=== PATIENT | female | born 1970 | race Caucasian/White ===

== ENCOUNTER 2023-03-02 10:41 | Emergency (ER) | payer SELFPAY ==
[~2023-03-02] VITALS: Ht 165 cm; Wt 82.0 kg
--- NOTE | 2023-03-02 10:56 | ED Chest Pain ---
General Chief Complaint: Chest Pain Stated Complaint: CHEST/BACK PAIN History of Present Illness Date Seen by Provider: Mar 02, 2023 Time Seen by Provider: 10:45 Initial Comments 52-year-old female with PMH of PTSD and left shoulder cuff injury and bilateral carpal tunnel syndrome repair, is here with c/o chest pressure which began around 3pm yesterday. Pain has been intermittent and intensity of pain ranges from 7/10 to 2/10. Pt went to walk in clinic today and was given 324mg of ASA and told to come to the ER for ACS rule out. Denies recent illness, fever , SOB, abdominal pain, nausea, vomiting, diaphoresis. Pt stopped smoking completely in October 2022 after 30+ years of smoking. Allergies and Home Medications Allergies Coded Allergies: No Known Drug Allergies (Unverified , 03/02/23) Patient Home Medication List Home Medication List Reviewed: Yes Review of Systems Review of Systems Constitutional: no symptoms reported EENTM: No Symptoms Reported Respiratory: No Symptoms Reported Cardiovascular: Chest Pain Gastrointestinal: No Symptoms Reported Genitourinary: No Symptoms Reported Musculoskeletal: no symptoms reported Skin: no symptoms reported Psychiatric/Neurological: No Symptoms Reported Past Znmwaoq-Edoxrg-Urzkne Hx Patient Social History Tobacco Use?: Yes Tobacco type used: Cigarettes Smoking Status: Former Smoker Use of E-Cig and/or Vaping dev: No Substance use?: Yes Substance type: Marijuana Alcohol Use?: No Pt feels they are or have been: No Immunizations Up To Date Influenza Vaccine Up-to-Date: No; Not Current Past Medical History Surgery/Hospitalization HX: CARPAL TUNNEL SX, PARTIAL HYSTERECTOMY, PTSD, ADHD, ANXIETY, OCD Physical Exam Vital Signs Vital Signs - First Documented 03/02/23 10:45 Temp 36.9 Pulse 78 Resp 16 B/P (MAP) 168/111 (130) Pulse Ox 99 O2 Delivery Room Air Capillary Refill : Less Than 3 Seconds Height, Weight, BMI Height: '" Weight: lbs. oz. kg; BMI Method: General Appearance: No Apparent Distress HEENT: PERRL/EOMI Neck: Full Range of Motion Respiratory: Lungs Clear, Normal Breath Sounds Cardiovascular: Regular Rate, Rhythm, No Edema, No Murmur, Other (point tenderness over the left side costochondral junctions that is reproducible) Gastrointestinal: Normal Bowel Sounds, Non Tender, Soft Neurologic/Psychiatric: Alert, Oriented x3, No Motor/Sensory Deficits Skin: Normal Color Progress/Results/Core Measures Results/Orders Lab Results Laboratory Tests Test 03/02/23 10:58 03/02/23 11:11 03/02/23 12:02 Range/Units White Blood Count 6.2 4.3-11.0 10^3/uL Red Blood Count 4.89 3.80-5.11 10^6/uL Hemoglobin 14.0 11.5-16.0 g/dL Hematocrit 43 35-52 % Mean Corpuscular Volume 87 80-99 fL Mean Corpuscular Hemoglobin 29 25-34 pg Mean Corpuscular Hemoglobin Concent 33 32-36 g/dL Red Cell Distribution Width 13.3 10.0-14.5 % Platelet Count 192 130-400 10^3/uL Mean Platelet Volume 11.6 9.0-12.2 fL Immature Granulocyte % (Auto) 0 % Neutrophils (%) (Auto) 51 42-75 % Lymphocytes (%) (Auto) 39 12-44 % Monocytes (%) (Auto) 8 0-12 % Eosinophils (%) (Auto) 2 0-10 % Basophils (%) (Auto) 1 0-10 % Neutrophils # (Auto) 3.2 1.8-7.8 10^3/uL Lymphocytes # (Auto) 2.4 1.0-4.0 10^3/uL Monocytes # (Auto) 0.5 0.0-1.0 10^3/uL Eosinophils # (Auto) 0.1 0.0-0.3 10^3/uL Basophils # (Auto) 0.1 0.0-0.1 10^3/uL Immature Granulocyte # (Auto) 0.0 0.0-0.1 10^3/uL Prothrombin Time 13.1 12.2-14.7 SEC INR Comment 1.0 0.8-1.4 Activated Partial Thromboplast Time 29 24-35 SEC Sodium Level 138 135-145 MMOL/L Potassium Level 4.5 3.6-5.0 MMOL/L Chloride Level 104 98-107 MMOL/L Carbon Dioxide Level 23 21-32 MMOL/L Anion Gap 11 5-14 MMOL/L Blood Urea Nitrogen 14 7-18 MG/DL Creatinine 0.68 0.60-1.30 MG/DL Estimat Glomerular Filtration Rate 105 BUN/Creatinine Ratio 21 Glucose Level 96 70-105 MG/DL Calcium Level 9.8 8.5-10.1 MG/DL Corrected Calcium 9.6 8.5-10.1 MG/DL Magnesium Level 2.2 1.6-2.4 MG/DL Total Bilirubin 0.3 0.1-1.0 MG/DL Aspartate Amino Transf (AST/SGOT) 25 5-34 U/L Alanine Aminotransferase (ALT/SGPT) 22 0-55 U/L Alkaline Phosphatase 116 40-136 U/L Troponin I < 0.30 <0.30 NG/ML Total Protein 7.2 6.4-8.2 GM/DL Albumin 4.3 3.2-4.5 GM/DL Urine Color YELLOW Urine Clarity CLEAR Urine pH 6.0 5-9 Urine Specific [place] 1.015 L 1.016-1.022 Urine Protein NEGATIVE NEGATIVE Urine Glucose (UA) NEGATIVE NEGATIVE Urine Ketones NEGATIVE NEGATIVE Urine Nitrite NEGATIVE NEGATIVE Urine Bilirubin NEGATIVE NEGATIVE Urine Urobilinogen 0.2 < = 1.0 MG/DL Urine Leukocyte Esterase NEGATIVE NEGATIVE Urine RBC (Auto) 1+ H NEGATIVE Urine RBC 2-5 H /HPF Urine WBC NONE /HPF Urine Squamous Epithelial Cells 5-10 /HPF Urine Crystals NONE /LPF Urine Bacteria NEGATIVE /HPF Urine Casts NONE /LPF Urine Mucus NEGATIVE /LPF Urine Culture Indicated NO Urine Opiates Screen NEGATIVE NEGATIVE Urine Oxycodone Screen NEGATIVE NEGATIVE Urine Methadone Screen NEGATIVE NEGATIVE Urine Barbiturates Screen NEGATIVE NEGATIVE Ur Tricyclic Antidepressants Screen NEGATIVE NEGATIVE Urine Phencyclidine Screen NEGATIVE NEGATIVE Urine Amphetamines Screen NEGATIVE NEGATIVE Urine Methamphetamines Screen NEGATIVE NEGATIVE Urine Benzodiazepines Screen NEGATIVE NEGATIVE Urine Cocaine Screen NEGATIVE NEGATIVE Urine Cannabinoids Screen POSITIVE H NEGATIVE My Orders Orders - ERIC LEAVITT MD Continuous Ekg Monitoring (03/02/23 10:47) Ekg Tracing (03/02/23 10:47) Chest 1 View Ap/Pa Only (03/02/23 10:48) Cbc And Automated Diff (03/02/23 10:48) Comprehensive Metabolic Panel (03/02/23 10:48) Drug Screen Stat (Urine) (03/02/23 10:48) Magnesium (03/02/23 10:48) Protime With Inr (03/02/23 10:48) Partial Thromboplastin Time (03/02/23 10:48) Ua Culture If Indicated (03/02/23 10:48) Troponin I Fs (03/02/23 10:48) Lidocaine 2% Viscous 15 Ml (Xylocaine Vi (03/02/23 11:45) Antacid Suspension (Antacid Suspension (03/02/23 11:45) Famotidine Injection (Famotidine Injec (03/02/23 11:45) Ekg Tracing (03/02/23 11:54) Troponin I Fs (03/02/23 11:54) Medications Given in ED Current Medications Medications Dose Ordered Sig/Zarina Route Start Time Stop Time Status Last Admin Dose Admin Al Hydrox/Mg Hydrox/Simethicone 30 ml ONCE ONCE PO 03/02/23 11:45 03/02/23 11:47 DC 03/02/23 11:56 30 ML Lidocaine HCl 15 ml ONCE ONCE PO 03/02/23 11:45 03/02/23 11:47 DC 03/02/23 11:56 15 ML Vital Signs/I&O 03/02/23 10:45 Temp 36.9 Pulse 78 Resp 16 B/P (MAP) 168/111 (130) Pulse Ox 99 O2 Delivery Room Air Progress Progress Note : Progress Note 1. ACS RULED OUT/ COSTOCHONDRITIS/ GERD: - CXR: no acute findings - EKG: NSR, non-ischemic - Troponin: undetectable - CBC/ CMP: normal - UA/ UDS: pt did not give urine specimen -Patient has reproducible point tenderness along the left second third and fourth costochondral junctions - ASA 324mg given in walk in clinic prior to coming to ER - Pepcid 20mg iv/ Viscous lidocaine /mylanta, Pt felt slightly better after this -Advised aims-bxa-ildwomd Pepcid 20mg daily for 2 weeks - Advised Ibuprofen 400mg Q6H for 7 days. Take with food. -Follow-up with PCP within the next 7 days. Would benefit from stress test due to family history of cardiac disease. -The patient was seen in the ED, and treated appropriately to presentation at a specific point in time. Patient is informed that there is a possibility that disease and illness can evolve and change in acuity rapidly or slowly after patient is discharged from the ER. Precautionary advice given to the patient for immediate return to ER if symptoms worsen or do not resolve, and to seek emergency care sooner rather than later. Pt also advised on the importance of PCP follow up and compliance with management and follow up plan with PCP and/or specialist, as this is part of the management plan. Pt verbally expressed understanding. Diagnostic Imaging Diagonstic Imaging: Xray Plain Films/CT/US/NM/MRI: chest Comments [facility] [place], [place] NAME: ADIN MCDONOUGH [facility] REC#: [id number] PT STATUS: REG ER : 1970 PHYSICIAN: ERIC LEAVITT MD ADMIT DATE: 03/02/23/ER FS Signed Date of Exam:03/02/23 CHEST 1 VIEW AP/PA ONLY INDICATION: Chest pain. FINDINGS: The lungs are clear. Benign calcified granuloma right upper lobe noted incidentally. No failure, effusion or pneumothorax. IMPRESSION: Normal frontal chest. Dictated by: Dictated on workstation # [id number] Dict: 03/02/23 1110 Trans: 03/02/23 1119 [id number] Interpreted by: BALTA LOPEZ Electronically signed by: BALTA LOPEZ 03/02/23 1119 Departure Impression Primary Impression: Ruled out for myocardial infarction Additional Impressions: GERD (gastroesophageal reflux disease) Costochondritis Disposition: 01 HOME, SELF-CARE Condition: Stable Departure-Patient Inst. Referrals: MONALISA HATFIELD APRN (PCP) Primary Care Physician [facility] (Family) Primary Care Physician Patient Instructions: Chest Pain That Is Not Caused by the Heart (DC), Heart H ealthy Diet, Costochondritis (DC), Acid reflux and gastroesophageal reflux disease in adults Add. Discharge Instructions: -Advised bscr-ewb-ycamjkl Pepcid 20mg daily for 2 weeks - Advised Ibuprofen 400mg Q6H for 7 days. Take with food. -Follow-up with PCP within the next 7 days. Would benefit from stress test due to family history of cardiac disease. All discharge instructions reviewed with patient and/or family. Voiced understanding. ERIC LEAVITT MD Mar 02, 2023 10:56
[2023-03-02 11:10] LABS: BASOPHILS # (AUTO) 0.1 10^3/uL (0.0-0.1); BASOPHILS % (AUTO) 1 % (0-10); EOSINOPHILS # (AUTO) 0.1 10^3/uL (0.0-0.3); EOSINOPHILS % (AUTO) 2 % (0-10); HEMATOCRIT 43 % (35-52); LYMPHOCYTES # (AUTO) 2.4 10^3/uL (1.0-4.0); LYMPHOCYTES % (AUTO) 39 % (12-44); MEAN CORPUSCULAR HEMOGLOBIN 29 pg (25-34); MEAN CORPUSCULAR HGB CONC 33 g/dL (32-36); MEAN CORPUSCULAR VOLUME 87 fL (80-99); MEAN PLATELET VOLUME 11.6 fL (9.0-12.2); MONOCYTES # (AUTO) 0.5 10^3/uL (0.0-1.0); MONOCYTES % (AUTO) 8 % (0-12); NEUTROPHILS # (AUTO) 3.2 10^3/uL (1.8-7.8); NEUTROPHILS % (AUTO) 51 % (42-75); PLATELET COUNT 192 10^3/uL (130-400); WHITE BLOOD COUNT 6.2 10^3/uL (4.3-11.0)
--- NOTE | 2023-03-02 11:13 | Diagnostic Imaging Report ---
INDICATION: Chest pain. FINDINGS: The lungs are clear. Benign calcified granuloma right upper lobe noted incidentally. No failure, effusion or pneumothorax. IMPRESSION: Normal frontal chest. Dictated by: Dictated on workstation # [id number]
[2023-03-02 11:22] LABS: PROTHROMBIN TIME PATIENT 13.1 SEC (12.2-14.7)
[2023-03-02 11:23] LABS: CHLORIDE 104 MMOL/L (98-107); POTASSIUM 4.5 MMOL/L (3.6-5.0); SODIUM 138 MMOL/L (135-145)
[2023-03-02 11:31] LABS: BILIRUBIN,URINE NEGATIVE (NEGATIVE); CLARITY,URINE CLEAR; COLOR,URINE YELLOW; GLUCOSE, URINE (UA) NEGATIVE (NEGATIVE); KETONES,URINE NEGATIVE (NEGATIVE); LEUKOCYTE ESTERASE ,URINE NEGATIVE (NEGATIVE); NITRITE,URINE NEGATIVE (NEGATIVE); PROTEIN,URINE NEGATIVE (NEGATIVE)
[2023-03-02 11:32] LABS: BACTERIA,URINE NEGATIVE /HPF
[2023-03-02 11:34] LABS: ALANINE AMINOTRANSFERASE 22 U/L (0-55); ALKALINE PHOSPHATASE 116 U/L (40-136); BILIRUBIN,TOTAL 0.3 MG/DL (0.1-1.0); BUN/CREATININE RATIO 21; CALCIUM 9.8 MG/DL (8.5-10.1); CARBON DIOXIDE 23 MMOL/L (21-32); CREATININE SERUM 0.68 MG/DL (0.60-1.30); GFR ESTIMATED 105; GLUCOSE 96 MG/DL (70-105); MAGNESIUM 2.2 MG/DL (1.6-2.4)
[2023-03-02 11:35] LABS: ALBUMIN 4.3 GM/DL (3.2-4.5); TOTAL PROTEIN 7.2 GM/DL (6.4-8.2)
[2023-03-02 11:37] LABS: AMPHETAMINE SCREEN, URINE NEGATIVE (NEGATIVE); BARBITURATE SCREEN URINE NEGATIVE (NEGATIVE); CANNABINOID SCREEN, URINE POSITIVE (NEGATIVE); COCAINE SCREEN URINE NEGATIVE (NEGATIVE); METHADONE STAT NEGATIVE (NEGATIVE); OPIATE SCREEN URINE NEGATIVE (NEGATIVE); OXYCODONE STAT NEGATIVE (NEGATIVE); TRICYCLIC ANTIDEPRESSANTS SCRE NEGATIVE (NEGATIVE)
[2023-03-02] MEDS ORDERED: ANTACID SUSPENSION 30 ML UDC PO ONE (11:45)
[2023-03-02] MEDS ORDERED: FAMOTIDINE INJ 20MG/2ML VIAL IV STA (11:45)
[2023-03-02] MEDS ORDERED: LIDOCAINE 2% VISCOUS 15 ML UDC PO ONE (11:45)
[2023-03-02 12:49] VITALS: BP 118/85
== END 2023-03-02 12:49 | disposition home or self-care (01) ==
LOC: EDUNIT# 10:41 → ER FS 10:43
DX: K21.9 Gastro-esophageal reflux disease without esophagitis (principal); M94.0 Chondrocostal junction syndrome [Tietze]; Z87.891 Personal history of nicotine dependence
CPT/HCPCS: 36415; 71045; 80053; 80306; 81000; 83735; 84484; 85025; 85610; 85730; 93005; 96374